=== PATIENT | male | born 1985 | race Caucasian/White ===

== ENCOUNTER 2022-06-13 00:20 | Emergency (ER) | payer BC ==
[~2022-06-13] VITALS: Ht 172.7 cm; Wt 68.0 kg
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
[2022-06-13] MEDS ORDERED: TDAP [DIPH/PERTUSSIS/TET] 0.5 ML VIAL IM ONE ×2 (01:00→01:38)
--- NOTE | 2022-06-13 01:40 | NUR ---
TAKEN TO CT
--- NOTE | 2022-06-13 02:09 | NUR ---
SUTURING OF WOUND DONE BY DR MEDINA
[2022-06-13] MEDS ORDERED: AMOX-430 PO (03:37)
[2022-06-13] MEDS ORDERED: AMOX/CLAVULANATE 875 MG TABLET ONE (03:42)
--- NOTE | 2022-06-13 03:50 | NUR ---
Patient discharged to home in stable condition. Written and verbal after care instructions given. Patient verbalizes understanding of instruction.
[2022-06-13 03:51] VITALS: BP 129/71
[2022-06-13] MEDS ORDERED: AMOX/CLAVULANATE 875 MG TABLET PO ONE (04:00)
== END 2022-06-13 03:50 | disposition home or self-care (01) ==
LOC: ER 00:34
DX: S02.2XXA Fracture of nasal bones, initial encounter for closed fracture (principal); S01.81XA Laceration without foreign body of other part of head, initial encounter; Z79.899 Other long term (current) drug therapy; W18.30XA Fall on same level, unspecified, initial encounter; Y93.89 Activity, other specified; Y92.89 Other specified places as the place of occurrence of the external cause; Y99.8 Other external cause status
CPT/HCPCS: 70450-TC; 70486-TC; 90715